=== PATIENT | female | born 1995 | race African-American/Black ===

== ENCOUNTER 2021-08-25 15:45 | Emergency (ER) | payer MEDICAID ==
[2021-08-25] MEDS ORDERED: Sodium Chloride 0.9% 10 ML Syringe FLUSH PRN (16:18)
[2021-08-25] MEDS ORDERED: Sodium Chloride 0.9% 150 ML Bag IV ONE (16:19)
--- NOTE | 2021-08-25 16:27 | EDM.PDOC ---
<Elysia Singh - Last Filed: 08/25/21 17:30> ED HPI GENERAL MEDICAL PROBLEM - General Chief Complaint: Abdominal Pain Stated Complaint: STOMACH PAIN, HASNT KEPT FOOD DOWN FOR DAYS Time Seen by Provider: 08/25/21 16:03 Source of Information: Reports: Patient History Limitations: Reports: No Limitations - History of Present Illness INITIAL COMMENTS - FREE TEXT/NARRATIVE: Ms. Bart Gonzalez is a tearful 26-year-old female who presents to the ER for evaluation of 4 days of nausea and vomiting. She reports that she has been unable to keep down food or water for 4 days. She reports smoking marijuana daily, and this helps give her an appetite. She reports being unable to swallow food. She has not tried anything, such as Tums or Tylenol, to make herself feel better. She rates her abdominal pain a 7/10, and regionalizes it to her upper abdomen. Associated symptoms include a headache x2 days, one episode of diarrhea, and a burning feeling in her nose. Onset Date: 08/21/21 Location: Reports: Abdomen Abdominal Pain Score (Numeric/FACES): 5 - Related Data Allergies Allergy/AdvReac Type Severity Reaction Status Date / Time No Known Allergies Allergy Verified 08/25/21 16:05 Home Meds: Home Meds Ondansetron [Zofran ODT] 4 mg PO Q6H PRN #20 tab.dis 08/25/21 [Rx] Past Medical History - Past Health History Medical/Surgical History: Denies Medical/Surgical History Social & Family History - Tobacco Use Tobacco Use Status *Q: Former Tobacco User Used Tobacco, but Quit: Yes Month/Year Tobacco Last Used: 07/2021 - Caffeine Use Caffeine Use: Reports: Energy Drinks - Recreational Drug Use Recreational Drug Use: Yes Recreational Drug Type: Reports: Marijuana/Hashish ED ROS GENERAL - Review of Systems Review Of Systems: Comprehensive ROS is negative, except as noted in HPI. Constitutional: Reports: No Symptoms HEENT: Reports: No Symptoms Respiratory: Reports: No Symptoms Cardiovascular: Reports: No Symptoms Endocrine: Reports: No Symptoms GI/Abdominal: Reports: No Symptoms : Reports: No Symptoms Musculoskeletal: Reports: No Symptoms Skin: Reports: No Symptoms Neurological: Reports: No Symptoms Psychiatric: Reports: No Symptoms Hematologic/Lymphatic: Reports: No Symptoms Immunologic: Reports: No Symptoms ED EXAM, GI/ABD - Physical Exam Exam: See Below Exam Limited By: No Limitations General Appearance: Alert, Other (Temp 98.5, Pulse 70, RR 15, BP 122/85, SpO2 97% on room air. ) Eyes: Bilateral: Normal Appearance (PERRL), EOMI Ears: Normal External Exam, Normal Canal, Hearing Grossly Normal, Other (Unable to fully assess TM due to cerumen impaction.) Nose: Normal Inspection, Normal Mucosa, No Blood Throat/Mouth: Normal Inspection, Normal Lips, Normal Teeth, Normal Gums, Normal Oropharynx, Normal Voice, No Airway Compromise Head: Atraumatic, Normocephalic Neck: Normal Inspection, Supple, Non-Tender, Full Range of Motion Respiratory/Chest: No Respiratory Distress, Lungs Clear, Normal Breath Sounds, No Accessory Muscle Use, Chest Non-Tender Cardiovascular: Regular Rate, Rhythm, No Edema, No JVD GI/Abdominal Exam: Normal Bowel Sounds, Soft, No Distention, No Abnormal Bruit, Tender (Patient endorces tenderness to the epigastric region with deep palpation. No masses palpated. ) Back Exam: Normal Inspection Extremities: Normal Inspection, Normal Range of Motion, Non-Tender Neurological: Alert, Oriented, CN II-XII Intact, Normal Cognition, No Motor/Sensory Deficits Psychiatric: Tearful Skin Exam: Warm, Dry, Intact, Normal Color, No Rash Lymphatic: No Adenopathy Course - Re-Assessments/Exams Free Text/Narrative Re-Assessment/Exam: 08/25/21 16:20 Initial orders include IV insertion, 1000mL 0.9%NaCl bolus, CBC, CMP, Lipase, serum HCG Qualitative, COVID/Influenza swab, and UA. 08/25/21 16:37 UA Results: Appearance: Slightly cloudy pH: 8.5 Protein: 1+ Ketones: Trace Leukocyte Esterase: Trace WBC: 20-30 Urine bacteria: Many Urine mucus: Moderate Otherwise, values are negative. 08/25/21 17:26 COVID, Influenza A&B, and RSV negative. Qualitative HCG positive. Potassium 3.3 Departure - Departure Disposition: Home, Self-Care 01 Clinical Impression: Qualifiers: Weeks of gestation: less than 8 weeks Qualified Code(s): Z3A.01 - Less than 8 weeks gestation of - Discharge Information Prescriptions: Ondansetron [Zofran ODT] 4 mg PO Q6H PRN #20 tab.dis PRN Reason: Nausea\vomiting Referrals: PCP,None [Primary Care Provider] - Shante Morales MD [Physician] - 1 Week Forms: ED Department Discharge Additional Instructions: According to your last normal menstrual period you should be about 6 weeks along. Drink plenty of fluids. Take the zofran every 6 hours as needed for nausea. Follow up with Dr Morales in our clinic within a week. Please return if you are worse. <Fran Bowser - Last Filed: 08/25/21 17:50> Course - Vital Signs Last Recorded V/S: Last Vital Signs Temp 98.5 F 08/25/21 16:04 Pulse 70 08/25/21 16:04 Resp 15 08/25/21 16:04 BP 122/85 08/25/21 16:04 Pulse Ox 97 08/25/21 16:04 - Orders/Labs/Meds Orders: Active Orders 24 hr Category Date Time Status Peripheral IV Care [RC] . DIRECTED Care 08/25/21 16:18 Active CULTURE URINE [MREF] Stat Lab 08/25/21 15:53 Received Sodium Chloride 0.9% [Normal Saline] 1,000 ml Med 08/25/21 16:46 Active IV ONETIME Sodium Chloride 0.9% [Saline Flush] Med 08/25/21 16:18 Active 10 ml FLUSH ASDIRECTED PRN Peripheral IV Insertion Adult [OM.PC] Routine Oth 08/25/21 16:18 Ordered Medication Orders Sodium Chloride (Normal Saline) 1,000 mls @ 999 mls/hr IV ONETIME ONE Stop: 08/25/21 17:46 Last Admin: 08/25/21 16:53 Dose: 999 mls/hr Documented by: SAMANTHA Sodium Chloride (Sodium Chloride 0.9% 10 Ml Syringe) 10 ml FLUSH ASDIRECTED PRN PRN Reason: Keep Vein Open Last Admin: 08/25/21 16:28 Dose: 10 ml Documented by: SAMANTHA Labs: Laboratory Tests 08/25/21 08/25/21 08/25/21 Range/Units 15:53 15:53 16:27 WBC 5.71 (3.98-10.04) K/mm3 RBC 5.18 (3.98-5.22) M/mm3 Hgb 11.4 (11.2-15.7) gm/dl Hct 35.5 (34.1-44.9) % MCV 68.5 L (79.4-94.8) fl MCH 22.0 L (25.6-32.2) pg MCHC 32.1 L (32.2-35.5) g/dl RDW Std Deviation 35.9 L (36.4-46.3) fL Plt Count 226 (182-369) K/mm3 MPV 11.0 (9.4-12.3) fl Neut % (Auto) 62.1 (34.0-71.1) % Lymph % (Auto) 30.5 (19.3-51.7) % [place] % (Auto) 6.5 (4.7-12.5) % Eos % (Auto) 0.7 (0.7-5.8) Baso % (Auto) 0.2 (0.1-1.2) % Neut # (Auto) 3.55 (1.56-6.13) K/mm3 Lymph # (Auto) 1.74 (1.18-3.74) K/mm3 [place] # (Auto) 0.37 H (0.24-0.36) K/mm3 Eos # (Auto) 0.04 (0.04-0.36) K/mm3 Baso # (Auto) 0.01 (0.01-0.08) K/mm3 Manual Slide Review Abnormal smear Sodium (136-145) mEq/L Potassium (3.5-5.1) mEq/L Chloride (98-107) mEq/L Carbon Dioxide (21-32) mEq/L Anion Gap (5-15) BUN (7-18) mg/dL Creatinine (0.55-1.02) mg/dL Est Cr Clr Drug Dosing mL/min Estimated GFR (MDRD) (>60) mL/min BUN/Creatinine Ratio (14-18) Glucose (70-99) mg/dL Calcium (8.5-10.1) mg/dL Total Bilirubin (0.2-1.0) mg/dL AST (15-37) U/L ALT (14-59) U/L Alkaline Phosphatase (46-116) U/L Total Protein (6.4-8.2) g/dl Albumin (3.4-5.0) g/dl Globulin gm/dL Albumin/Globulin Ratio (1-2) Lipase (73-393) U/L HCG, Qual (NEGATIVE) Urine Color Yellow (Yellow) Urine Appearance Slt cloudy H (Clear) Urine pH 8.5 H (5.0-8.0) Ur Specific [place] 1.020 (1.005-1.030) Urine Protein 1+ H (Negative) Urine Glucose (UA) Negative (Negative) Urine Ketones Trace H (Negative) Urine Occult Blood Negative (Negative) Urine Nitrite Negative (Negative) Urine Bilirubin Negative (Negative) Urine Urobilinogen 0.2 (0.2-1.0) Ur Leukocyte Esterase Trace H (Negative) Urine RBC 0-5 (0-5) /hpf Urine WBC 20-30 H (0-5) /hpf Ur Squamous Epith Cells 10-20 H (0-5) /hpf Urine Bacteria Many H (FEW) /hpf Urine Mucus Moderate H (FEW) /hpf Influenza Type A RNA Negative (NEGATIVE) RSV RNA (INAAT) Negative (NEGATIVE) Influenza Type B RNA Negative (NEGATIVE) SARS-CoV-2 RNA (BONNIE) Negative (NEGATIVE) 08/25/21 08/25/21 Range/Units 16:27 16:27 WBC (3.98-10.04) K/mm3 RBC (3.98-5.22) M/mm3 Hgb (11.2-15.7) gm/dl Hct (34.1-44.9) % MCV (79.4-94.8) fl MCH (25.6-32.2) pg MCHC (32.2-35.5) g/dl RDW Std Deviation (36.4-46.3) fL Plt Count (182-369) K/mm3 MPV (9.4-12.3) fl Neut % (Auto) (34.0-71.1) % Lymph % (Auto) (19.3-51.7) % [place] % (Auto) (4.7-12.5) % Eos % (Auto) (0.7-5.8) Baso % (Auto) (0.1-1.2) % Neut # (Auto) (1.56-6.13) K/mm3 Lymph # (Auto) (1.18-3.74) K/mm3 [place] # (Auto) (0.24-0.36) K/mm3 Eos # (Auto) (0.04-0.36) K/mm3 Baso # (Auto) (0.01-0.08) K/mm3 Manual Slide Review Sodium 139 (136-145) mEq/L Potassium 3.3 L (3.5-5.1) mEq/L Chloride 104 (98-107) mEq/L Carbon Dioxide 25 (21-32) mEq/L Anion Gap 13.3 (5-15) BUN 12 (7-18) mg/dL Creatinine 0.8 (0.55-1.02) mg/dL Est Cr Clr Drug Dosing 85.76 mL/min Estimated GFR (MDRD) > 60 (>60) mL/min BUN/Creatinine Ratio 15.0 (14-18) Glucose 84 (70-99) mg/dL Calcium 9.3 (8.5-10.1) mg/dL Total Bilirubin 0.7 (0.2-1.0) mg/dL AST 16 (15-37) U/L ALT 18 (14-59) U/L Alkaline Phosphatase 72 (46-116) U/L Total Protein 7.9 (6.4-8.2) g/dl Albumin 3.7 (3.4-5.0) g/dl Globulin 4.2 gm/dL Albumin/Globulin Ratio 0.9 L (1-2) Lipase 120 (73-393) U/L HCG, Qual Positive H (NEGATIVE) Urine Color (Yellow) Urine Appearance (Clear) Urine pH (5.0-8.0) Ur Specific [place] (1.005-1.030) Urine Protein (Negative) Urine Glucose (UA) (Negative) Urine Ketones (Negative) Urine Occult Blood (Negative) Urine Nitrite (Negative) Urine Bilirubin (Negative) Urine Urobilinogen (0.2-1.0) Ur Leukocyte Esterase (Negative) Urine RBC (0-5) /hpf Urine WBC (0-5) /hpf Ur Squamous Epith Cells (0-5) /hpf Urine Bacteria (FEW) /hpf Urine Mucus (FEW) /hpf Influenza Type A RNA (NEGATIVE) RSV RNA (INAAT) (NEGATIVE) Influenza Type B RNA (NEGATIVE) SARS-CoV-2 RNA (BONNIE) (NEGATIVE) Meds: Medications Generic Name Dose Route Start Last Admin Trade Name Freq PRN Reason Stop Dose Admin Sodium Chloride 1,000 mls @ 999 mls/hr 08/25/21 16:46 08/25/21 16:53 Normal Saline IV 08/25/21 17:46 999 mls/hr ONETIME ONE Administration Sodium Chloride 10 ml 08/25/21 16:18 08/25/21 16:28 Sodium Chloride 0.9% 10 Ml Syringe FLUSH 10 ml ASDIRECTED PRN Administration Keep Vein Open Discontinued Medications Generic Name Dose Route Start Last Admin Trade Name Freq PRN Reason Stop Dose Admin Sodium Chloride 1,000 ml 08/25/21 16:19 Sodium Chloride 0.9% 150 Ml Bag IV 08/25/21 16:20 ONETIME ONE - Re-Assessments/Exams Free Text/Narrative Re-Assessment/Exam: 08/25/21 17:44 I examined the patient myself and I agree with Elysia's assessment and plan. The patient did get some chest pain while getting the NS. My nurse stopped the infusion and she felt better. I am not sure that was the cause but we will not continue the infusion. Her CBC looks good. Her K is a little low at 3.3. Her lipase is normal. Her UA shows no UTI. Her HCG is positive. The patient says her LNMP was July 14. That would be 6 weeks gestation. I will give her some zofran and follow up with Dr Morales. Departure - Departure Time of Disposition: 17:50 Condition: Good - Discharge Information *PRESCRIPTION DRUG MONITORING PROGRAM REVIEWED*: Not Applicable *COPY OF PRESCRIPTION DRUG MONITORING REPORT IN PATIENT TYRELL: Not Applicable Sepsis Event Note (ED) - Focused Exam Vital Signs: Vital Signs Temp Pulse Resp BP Pulse Ox 08/25/21 16:04 98.5 F 70 15 122/85 97 - My Orders Last 24 Hours: My Active Orders 08/25/21 15:53 CULTURE URINE [MREF] Stat - Assessment/Plan Last 24 Hours: My Active Orders 08/25/21 15:53 CULTURE URINE [MREF] Stat
[2021-08-25] MEDS ORDERED: Sodium Chloride 0.9% 1,000 ML IV ONE (16:46)
[2021-08-25 16:56] LABS: CORONAVIRUS COVID-19 NAA NEGATIVE (NEGATIVE)
[2021-08-25] MEDS ORDERED: Ondansetron 4 MG/2 ML SDV IVPUSH ONE (17:57)
== END 2021-08-25 18:10 | disposition home or self-care (01) ==
LOC: JD.ED 15:45
DX: O21.9 Vomiting of pregnancy, unspecified (principal); Z87.891 Personal history of nicotine dependence; Z20.822 Contact with and (suspected) exposure to COVID-19; Z3A.01 Less than 8 weeks gestation of pregnancy
CPT/HCPCS: 0241U; 36415; 80053; 81001; 83690; 84703; 85025; 87086; 96374; 99284; J2405; J7030

== ENCOUNTER 2021-08-30 17:22 | Emergency (ER) | payer MEDICAID ==
[2021-08-30] MEDS ORDERED: Vitamin B6-pyridOXINE 50 MG Tab PO STA (20:08)
== END 2021-08-30 20:41 | disposition home or self-care (01) ==
LOC: JD.ED 17:22
DX: O20.0 Threatened abortion (principal); Z3A.01 Less than 8 weeks gestation of pregnancy
CPT/HCPCS: 36415; 76801; 84702; 85014; 85018; 86900; 86901; 99284; A9270

== ENCOUNTER 2022-04-16 12:23 | Emergency (ER) | payer MEDICAID, OTHER | END 2022-04-16 14:44 | disposition home or self-care (01) | LOC: JD.ED 12:23 | DX: Z48.00 Encounter for change or removal of nonsurgical wound dressing (principal) | CPT/HCPCS: 99282 ==